=== PATIENT | female | born 1995 | race Caucasian/White ===

== ENCOUNTER → 2016-08-20 | Outpatient (CLI) | payer OTHER ==
--- NOTE | 2016-08-20 10:55 | DIAGNOSTIC IMAGING REPORT ---
LEFT WRIST 3 VIEWS CLINICAL HISTORY: Left wrist pain and injury. FINDINGS: 3 views of left wrist are obtained. No prior studies are available for comparison at the time of dictation. The skeletal structures are well mineralized. No acute fracture is identified. A chronic appearing avulsion injury is noted from the ulnar styloid. Apparent mild angulation of the distal radial metaphysis may also be related to remote trauma. The joint spaces of the wrist appear preserved. Mild overlying soft tissue swelling is noted. IMPRESSION: 1. Mild soft tissue swelling with no acute fracture clearly identified. If there is strong clinical concern for occult fracture consider short-term radiographic follow-up. 2. There is a chronic appearing avulsion injury of the ulnar styloid. Electronically signed by: Dennys Garcia M.D. 08/20/2016 10:53 AM Dictated Date/Time: 08/20/2016 10:51 AM
== END | disposition home or self-care (01) ==
LOC: C.RDSM 10:43
PROVIDERS: ATTEND Internal Medicine
DX: M25.532 Pain in left wrist (principal)

== ENCOUNTER → 2016-09-03 | Outpatient (CLI) | payer OTHER ==
[~2016-09-03] MED LIST: GADAVIST IV PRN
--- NOTE | 2016-09-03 16:10 | DIAGNOSTIC IMAGING REPORT ---
MRI left wrist UPPER EXT JOINT COMBO CLINICAL HISTORY: LT WRIST PAIN pain TECHNIQUE: Multiaxial MRI acquisition COMPARISON STUDY: None FINDINGS: Small old avulsion from the ulnar styloid. Signal characteristics the osseous structures are otherwise unremarkable. There is a trace amount of fluid between the distal radius and ulna. This suggests a focal triangular fibrocartilage tear. All remaining ligamentous and tendinous structures appear to be intact. There is no evidence for bone marrow replacing process. The structures the carpal tunnel appear to be intact. Bony alignment is considered anatomic. Small osteochondral defect radial styloid IMPRESSION: 1. Small old avulsion of the ulnar styloid. 2. Small full-thickness tear of the triangular fibrocartilage with a trace amount of fluid between the distal radius and ulna. 3. Remainder the study is remarkable only for a small osteochondral defect of the radial styloid with no significant bony substance loss Electronically signed by: Louis De La Rosa M.D. 09/03/2016 4:08 PM Dictated Date/Time: 09/03/2016 4:05 PM
== END | disposition home or self-care (01) ==
LOC: C.MRI 14:09
PROVIDERS: ATTEND Physician Assistant
DX: M25.532 Pain in left wrist (principal)

== ENCOUNTER → 2017-09-22 | Outpatient (CLI) | payer OTHER ==
--- NOTE | 2017-09-22 08:56 | DIAGNOSTIC IMAGING REPORT ---
MRI OF THE LEFT ELBOW WITHOUT IV CONTRAST CLINICAL HISTORY: Left elbow sprain. COMPARISON STUDY: No priors. TECHNIQUE: MRI of the left elbow is performed utilizing various T1 and T2-weighted sequences in the axial, sagittal, and coronal planes. IV contrast was not administered for this examination. Note that interpretation is suboptimal without plain film correlate. FINDINGS: Normal marrow signal intensity is preserved throughout the visualized bony structures. There is no MRI evidence of fracture. Trace joint fluid is identified. There is increased signal with high-grade partial-thickness tearing seen at the humeral attachment of the ulnar collateral ligament. This is best seen on coronal images #9 and 10. The radial collateral ligament is intact. The common extensor tendon is normal in appearance. There is mild edema and thickening at the humeral attachment of the common flexor tendon consistent with medial epicondylitis. There is marrow edema at the musculotendinous junction within the flexor musculature. There is also mild marrow edema within the medial aspect of the brachialis muscle. The biceps and triceps tendons are well-maintained. IMPRESSION: 1. There is high-grade partial thickness tearing of the ulnar collateral ligament at the humeral attachment with overlying soft tissue edema. 2. There is evidence of mild medial epicondylitis. 3. Intramuscular edema is seen within the flexor musculature near the musculotendinous junction as well as in the medial aspect of the brachialis muscle. 4. No osseous abnormality is identified. Dictated: 09/22/2017 8:38 AM Transcribed: 09/22/2017 8:56 AM [facility] Electronically signed by: Dennys Garcia M.D. 09/22/2017 9:06 AM Dictated Date/Time: 09/22/2017 8:38 AM
== END | disposition home or self-care (01) ==
LOC: C.MRI 07:35
PROVIDERS: ATTEND Internal Medicine
DX: M77.02 Medial epicondylitis, left elbow (principal); S53.449A Ulnar collateral ligament sprain of unspecified elbow, initial encounter; X58.XXXA Exposure to other specified factors, initial encounter